=== PATIENT | male | born 1950 | race Caucasian/White ===

== ENCOUNTER → 2019-08-30 | Outpatient (CLI) | payer MEDICARE, MEDICAID | END | disposition home or self-care (01) | LOC: NPLAB 15:07 | PROVIDERS: ATTEND Internal Medicine | DX: L02.214 Cutaneous abscess of groin (principal) | CPT/HCPCS: 87070 ==

== ENCOUNTER → 2019-11-08 | Outpatient (CLI) | payer MEDICARE, MEDICAID | END | disposition home or self-care (01) | LOC: LAB 09:33 | PROVIDERS: ATTEND Internal Medicine | DX: I81 Portal vein thrombosis (principal); A80 Acute poliomyelitis | CPT/HCPCS: 87070; 87077; 87186 ==